=== PATIENT | female | born 1995 | race Caucasian/White ===

== ENCOUNTER 2019-01-09 14:42 | Emergency (ER) | payer MEDICAID, OTHER ==
[~2019-01-09] VITALS: Ht 167.6 cm; Wt 63.5 kg
[~2019-01-09 14:42] MED LIST: PREN-385 PO
[2019-01-09 15:02] VITALS: BP 130/69
--- NOTE | 2019-01-09 15:51 | NUR ---
PATIENT TO BED 12 AT THIS TIME.
--- NOTE | 2019-01-09 16:02 | NUR ---
23 Y FEMALE BIB SELF C/O VOMITING, ABD PAIN AND HEADACHE SINCE THIS AM. PT ACTIVELY VOMITING CLEAR FLUIDS. STATES SHE SMOKED WEED YESTERDAY. SMOKES A COUPLE TIMES A DAY. DENIES CONSTIPATION OR DIARRHEA. ABDOMEN SOUNDS ACTIVE IN ALL 4 QUADRANTS. ABDOMEN SOFT AND FLAT. VSS AT THIS TIME. PT AA0X4. BED IS DOWN, LOCKED, BED RAIL X 1, ERMD TO SEE PT. PMH- DENIES
--- NOTE | 2019-01-09 16:03 | NUR ---
DR GIBBONS AT BEDSIDE
[2019-01-09] MEDS ORDERED: diphenhydrAMINE 50 MG/ML VIAL IVP ONE (16:05)
[2019-01-09] MEDS ORDERED: HALOPERIDOL IM 5 MG/ML VIAL IM ONE (16:05)
[2019-01-09] MEDS ORDERED: NACL 0.9% 2,000 ML IV SCH (16:05)
--- NOTE | 2019-01-09 16:17 | NUR ---
LAB AT BEDSIDE
[2019-01-09 16:34] LABS: BASOPHILS # (AUTO) 0.1 K/uL (0.00-0.22); BASOPHILS % (AUTO) 0.9 % (0.0-2.0); EOSINOPHILS % (AUTO) 0.1 % (0.0-4.0); HEMATOCRIT 42.6 % (36-48); HEMOGLOBIN 14.6 g/dL (12.0-16.0); LYMPHOCYTES # (AUTO) 1.1 K/uL (2.5-16.5); LYMPHOCYTES % (AUTO) 7.2 % (20.5-51.1); MEAN CORPUSCULAR HEMOGLOBIN 30 pg (27-31); MEAN CORPUSCULAR HGB CONC 34 g/dL (33-37); MEAN CORPUSCULAR VOLUME 88.5 fL (80-94); MONOCYTES # (AUTO) 0.4 K/uL (0.8-1.0); MONOCYTES % (AUTO) 2.5 % (1.7-9.3); NEUTROPHILS # (AUTO) 13.6 K/uL (1.8-7.7); NEUTROPHILS % (AUTO) 89.3 % (42.2-75.2); PLATELET COUNT (AUTO) 337 K/uL (140-450); RED BLOOD CELL COUNT(AUTO) 4.82 MIL/uL (4.20-5.40); RED CELL DISTRIBUTION WIDTH 12.8 % (11.6-13.7); WHITE BLOOD COUNT (AUTO) 15.2 K/uL (4.8-10.8)
[2019-01-09] MEDS ORDERED: PROMETHAZINE 25 MG/ML VIAL IM ONE (16:35)
--- NOTE | 2019-01-09 16:35 | NUR ---
PT AMB TO [facility] W/O ASST
[2019-01-09 16:36] LABS: APPEARANCE,URINE SL CLOUDY (CLEAR); BILIRUBIN,URINE 1+ (NEGATIVE); BLOOD, URINE NEGATIVE (NEGATIVE); COLOR,URINE ORANGE (YELLOW); LEUKOCYTE ESTERASE ,URINE TRACE (NEGATIVE); NITRITE, URINE NEGATIVE (NEGATIVE); UGLUCOSE NEGATIVE (NEGATIVE)
[2019-01-09 16:41] LABS: RBC,URINE 0-5 /HPF (0-5)
[2019-01-09 16:45] LABS: BARBITURATE, URINE NEG. ng/ml (NEG <=200); BENZODIAZEPINE, URINE NEG. ng/mL (NEG <=200); CANNABINOID, URINE POS. ng/mL (NEG <=50); COCAINE, URINE NEG. ng/mL (NEG <=300); OPIATE, URINE NEG. ng/mL (NEG <=2000); PHENCYCLIDINE SCREEN,URINE NEG. ng/mL (NEG <=25)
[2019-01-09 16:45] LABS: ANION GAP 16.1 (8-16); CREATININE 0.7 mg/dL (0.6-1.3); POTASSIUM 3.1 mmol/L (3.5-5.1)
[2019-01-09 16:49] LABS: ALBUMIN 4.3 g/dL (3.4-5.0); TOTAL BILIRUBIN 1.5 mg/dL (0.0-1.0)
--- NOTE | 2019-01-09 16:57 | NUR ---
PT BEING TAKEN TO CT VIA [facility]
--- NOTE | 2019-01-09 17:28 | NUR ---
VSS AT THIS TIME. PT SLEEPING IN BED. NORMAL SALINE RUNNING
--- NOTE | 2019-01-09 18:47 | NUR ---
PT TACHY AT 107. SLEEPING IN BED, AROUSABLE TO TOUCH.
--- NOTE | 2019-01-09 19:04 | NUR ---
GAVE REPORT TO SANTI TRIANA
[2019-01-09] MEDS ORDERED: LEVOFLOXACIN 500 MG/D5W PREMIX 100 ML IV ONE (19:10)
[2019-01-09] MEDS ORDERED: KCL 20 MEQ/WATER INJ PREMIX 100 ML IV ONE (19:10)
--- NOTE | 2019-01-09 19:30 | NUR ---
PT VOMITING AT BEDSIDE, FELT BETTER AFTER. PT VSS. ER MD MADE AWARE
--- NOTE | 2019-01-09 20:00 | NUR ---
PT SENSITIVE TO POTASSIUM DRIP, LOWERED MEDICATION TO 30 ML/HR. PT TOLERATED WELL.
--- NOTE | 2019-01-09 20:15 | NUR ---
POTASSIUM WAS DICONTINUED. DUE TO PT ARM TURNING RED WITH SENSITIVITY PER ER MD. PT TOLERATED NS BOLUS WELL. VSS
[2019-01-09] MEDS ORDERED: ONDANSETRON 4 MG/2 ML VIAL IVP ONE (21:20)
--- NOTE | 2019-01-09 22:00 | NUR ---
PT VOMITED AT BEDSIDE, PT WAS GIVEN ZOFRAN FOR N/V. PT TOLERATED WELL.VSS
--- NOTE | 2019-01-09 22:18 | NUR ---
Patient discharged with v/s stable. Written and verbal after care instructions given and explained. Patient alert, oriented and verbalized understanding of instructions. Ambulatory with steady gait. All questions addressed prior to discharge. ID band removed. Patient advised to follow up with PMD. Rx of LEVAQUIN TABLET, BENTYLCOMPAZINE AND PEDIALYTE given. Patient educated on indication of medication including possible reaction and side effects. Opportunity to ask questions provided and answered. PT STATED SHE NO LONGER HAD N/V. PT PAIN LEVEL IS 3/10 PRIOR TO D/C
[2019-01-09 22:21] VITALS: BP 113/65
== END 2019-01-09 22:18 | disposition home or self-care (01) ==
LOC: MED 14:42
DX: K52.9 Noninfective gastroenteritis and colitis, unspecified (principal); N39.0 Urinary tract infection, site not specified; E87.6 Hypokalemia; R51 Headache; F12.188 Cannabis abuse with other cannabis-induced disorder; Z79.899 Other long term (current) drug therapy
CPT/HCPCS: 36415; 74176; 80053; 80305; 81001; 81025; 82150; 83605; 83690; 84703; 85025; 87086; 96361; 96365; 96368; 96372; 96375; 99284; J1200; J1630; J1956; J2405; J2550; J3480; J7030

== ENCOUNTER 2019-02-25 22:10 | Emergency (ER) | payer MEDICAID, OTHER ==
[~2019-02-25] VITALS: Ht 175.3 cm; Wt 63.5 kg
--- NOTE | 2019-02-25 22:21 | NUR ---
TO LOBBY A/W BED AMBULATORY
--- NOTE | 2019-02-25 22:32 | NUR ---
PT TAKEN TO BED 11
--- NOTE | 2019-02-25 22:40 | NUR ---
23 Y/O F BIB AUNT TO ED C/O SORETHROAT BODYACHES, H/A, ABDOMINAL PAIN 10/10 AND VOMITING ALL DAY. DENIES DIARRHEA, NO FEVER, AAOX4, GCS 15, RR EVEN UNLABORED, ABD SOFT NON-TENDER, ED MD DR. BEE MADE AWARE, WILL CONTINUE TO MONITOR CLOSELY, BED LOCKED IN LOWEST POSITION.
--- NOTE | 2019-02-25 23:09 | NUR ---
Dr. Hdz examining patient.
[2019-02-25] MEDS ORDERED: ONDANSETRON 4 MG/2 ML VIAL IVP ONE (23:15)
[2019-02-25] MEDS ORDERED: PANTOPRAZOLE 40 MG INJ VIAL IVP ONE (23:35)
[2019-02-25] MEDS ORDERED: NACL 0.9% 1,000 ML IV ONE (23:35)
--- NOTE | 2019-02-25 23:50 | NUR ---
PT IN BED RESTING, VSS , TOLERATED IVF NO VOMITING AT THIS TIME, WILL CONTINUE TO MONITOR CLOSELY.
[2019-02-26 00:40] VITALS: BP 108/64
--- NOTE | 2019-02-26 00:40 | NUR ---
Patient discharged with v/s stable. Written and verbal after care instructions given and explained. Patient alert, oriented and verbalized understanding of instructions. Ambulatory with steady gait. All questions addressed prior to discharge. ID band removed. Patient advised to follow up with PMD. Rx of ZOFRAN ODT 4MG AND OMEPRAZOLE 40MG given. Patient educated on indication of medication including possible reaction and side effects. Opportunity to ask questions provided and answered.
--- NOTE | 2019-02-27 13:44 | NUR ---
Late entry. Confirmed with RN that 0.9NS 1000ml IV completed at 0040.
== END 2019-02-25 23:12 | disposition home or self-care (01) ==
LOC: MED 22:10
DX: K29.70 Gastritis, unspecified, without bleeding (principal); Z79.899 Other long term (current) drug therapy
CPT/HCPCS: 81002; 81025; 96361; 96374; 96375; 99283; C9113; J2405; J7030

== ENCOUNTER 2020-11-16 00:05 | Emergency (ER) | payer OTHER ==
[~2020-11-16] VITALS: Ht 172.7 cm; Wt 70.3 kg
[2020-11-16 00:17] VITALS: BP 134/81
--- NOTE | 2020-11-16 00:17 | NUR ---
TO BED AMBULATORY
--- NOTE | 2020-11-16 00:25 | NUR ---
RECEIVED IN BED 12, REQUESTING COVID TESTING. PT STATED SHE WAS TOLD SHE COULD COME TO THE ER FOR COVID TESTING AND SAYS, "I DON'T FEEL WELL". PT IS AGITATED AND RESTLESS. RESPIRATIONS REGULAR AND UNLABORED
--- NOTE | 2020-11-16 01:25 | NUR ---
Dr. Arango examining patient.
[2020-11-16] MEDS ORDERED: KETOROLAC 60 MG/2 ML VIAL IM ONE (01:30)
[2020-11-16] MEDS ORDERED: IBUP-2213 PO (01:43)
[2020-11-16] MEDS ORDERED: PRED20TA5 PO (01:43)
--- NOTE | 2020-11-16 01:50 | NUR ---
Patient discharged with v/s stable. Written and verbal after care instructions given and explained. Patient alert, oriented and verbalized understanding of instructions. Ambulatory with steady gait. All questions addressed prior to discharge. ID band removed. Patient advised to follow up with PMD. Rx of MOTRIN & PREDNISONE given. Patient educated on indication of medication including possible reaction and side effects. Opportunity to ask questions provided and answered.
== END 2020-11-16 01:50 | disposition home or self-care (01) ==
LOC: MED 00:05
DX: R51.9 Headache, unspecified (principal); Z20.822 Contact with and (suspected) exposure to COVID-19; R05 Cough; R43.8 Other disturbances of smell and taste; F12.90 Cannabis use, unspecified, uncomplicated; Z79.899 Other long term (current) drug therapy
CPT/HCPCS: 96372; 99283; J1885; U0003